=== PATIENT | female | born 1995 | race Caucasian/White ===

== ENCOUNTER 2017-04-21 12:51 | Emergency (ER) | payer SELFPAY ==
[~2017-04-21] VITALS: Ht 160 cm; Wt 75.5 kg
[2017-04-21 12:55] VITALS: Ht 160 cm; Wt 75.5 kg
--- NOTE | 2017-04-21 14:07 | ERD ---
ER Documentation Chief Complaint Date/Time DATE: 04/21/17 TIME: 14:06 Chief Complaint sent by pmd for possible ectopic, LMP 03/10/17 HPI Patient is a 22-year-old female , approximately 5 weeks , who presents to the emergency department for concerns of an ectopic . Patient was referred to the ED by her primary care physician at the [facility]. Per report which she brings in, unable to identify intrauterine gestational sac at this time. Patient denies any fevers, chills, nausea, vomiting, pain, vaginal bleeding, pelvic cramping or loss of consciousness. Patient states her last menstrual period was on 03/10/17. ROS All systems reviewed and are negative except as per history of present illness. Medications Home Meds Active Scripts Cephalexin* (Keflex*) 500 Mg Capsule, 500 MG PO TID for 7 Days, CAP Prov:MICHAEL ESCOBAR PA-C 04/21/17 Allergies Allergies: Coded Allergies: No Known Allergy (Unverified , 04/21/17) PMhx/Soc Medical and Surgical Hx: pt denies Medical Hx, pt denies Surgical Hx Hx Alcohol Use: No Hx Substance Use: No Hx Tobacco Use: No Smoking Status: Never smoker Physical Exam Vitals Vital Signs Date Time Temp Pulse Resp B/P Pulse Ox O2 Delivery O2 Flow Rate FiO2 04/21/17 12:55 98.3 74 18 127/76 100 Physical Exam GENERAL: Well-developed, well-nourished female. Appears in no acute distress. HEAD: Normocephalic, atraumatic. EYES: Pupils are equally reactive bilaterally. EOMs grossly intact. No conjunctival erythema. ENT: Moist mucous membranes. No uvula deviation. No kissing tonsils. NECK: Supple. No meningismus. Normal range of motion of the neck. LUNG: Clear to auscultation bilaterally. No rhonchi, wheezing, rales or coarse breath sounds. HEART: Regular rate and rhythm. No murmurs, rubs or gallops. ABDOMEN: No scars, ecchymosis or rashes noted. Soft, nontender, and nondistended. Positive bowel sounds in all four quadrants. No rebound tenderness , no guarding. (-) McBurney's point tenderness. No CVA tenderness. EXTREMITIES: Equal pulses bilaterally. No peripheral clubbing, cyanosis or edema. No unilateral leg swelling. NEUROLOGIC: Alert and oriented. Moving all four extremities without any difficulty. Normal speech. Steady gait. SKIN: Normal color. Warm and dry. No rashes or lesions. Result Diagram: 04/21/17 1409 Results 24 hrs Laboratory Tests Test 04/21/17 14:09 04/21/17 14:20 White Blood Count 6.510^3/ul Red Blood Count 4.2810^6/ul Hemoglobin 13.5g/dl Hematocrit 39.2% Mean Corpuscular Volume 91.6fl Mean Corpuscular Hemoglobin 31.5pg Mean Corpuscular Hemoglobin Concent 34.4g/dl Red Cell Distribution Width 12.2% Platelet Count 51525^3/UL Mean Platelet Volume 9.7fl Neutrophils % 56.5% Lymphocytes % 35.1% Monocytes % 7.1% Eosinophils % 0.6% Basophils % 0.5% Nucleated Red Blood Cells % 0.0/100WBC Neutrophils # 3.710^3/ul Lymphocytes # 2.310^3/ul Monocytes # 0.510^3/ul Eosinophils # 0.010^3/ul Basophils # 0.010^3/ul Nucleated Red Blood Cells # 0.010^3/ul Beta HCG, Quantitative 125.3mIU/ml Urine Color YELLOW Urine Clarity SLIGHTLY CLOUDY Urine pH 6.0 Urine Specific [place] 1.014 Urine Ketones NEGATIVEmg/dL Urine Nitrite NEGATIVEmg/dL Urine Bilirubin NEGATIVEmg/dL Urine Urobilinogen NEGATIVEmg/dL Urine Leukocyte Esterase 2+Sudeep/ul Urine Microscopic RBC 1/HPF Urine Microscopic WBC 12/HPF Urine Squamous Epithelial Cells FEW/HPF Urine Bacteria FEW/HPF Urine Hemoglobin NEGATIVEmg/dL Urine Glucose NEGATIVEmg/dL Urine Total Protein NEGATIVEmg/dl Current Medications Medications (Trade) Dose Ordered Sig/Molly Route PRN Reason Start Time Stop Time Status Last Admin Dose Admin Acetaminophen (Tylenol Tab) 1,000 mg ONCE STAT PO 04/21/17 15:11 04/21/17 15:12 DC 04/21/17 15:21 Procedures/MDM ED COURSE: The patient was stable throughout ED course. I kept the patient and/or family informed of laboratory and diagnostic imaging results throughout the ED course. DIAGNOSTIC IMAGING: Read by radiologist. Patient: TERESSA ASHTON : 1995 Age: 22 Sex: F MR #: [id number] DOS: 04/21/17 1353 Ordering MD: MICHAEL ESCOBAR PA-C Location: [facility] Room/Bed: PROCEDURE: OBSTETRICAL ULTRASOUND WITH ENDOVAGINAL IMAGES CLINICAL INDICATION: Vaginal Bleed () TECHNIQUE: Multiple sonographic images of the pelvis were obtained utilizing a transabdominal and endovaginal technique. The images were reviewed on a PACS workstation. COMPARISON: None. LMP: 03/10/2017 Gestational age by LMP: 6 weeks, 0 days FINDINGS: The uterus measures 7.6 x 4.5 x 5.4 cm. There is thickening of the endometrium to 8 mm without evidence of an intrauterine . The right ovary measures 2.5 x 1.3 x 1 point a cm. The left ovary measures 3.2 x 1.8 x 2.7 cm. There is normal vascular flow in both ovaries. There is a thick-walled 2 cm lesion with prominent peripheral vascular flow and internal septations in the left ovary which is likely a hemorrhagic/corpus luteal cyst. No significant pelvic free fluid is identified. IMPRESSION: Thickening of the endometrium to 8 mm without evidence of an intrauterine . If there has been a recent documented intrauterine , then findings suggest interval . If there has been no recent documented intrauterine , then findings may be due to an early intrauterine although an ectopic and early demise cannot be excluded in the setting of vaginal bleeding. In such a scenario, short-term follow-up ultrasound and serial Beta HCG measurements are recommended for further evaluation. 2 cm complex cystic lesion in the left ovary is likely a hemorrhagic/corpus luteal cyst. No internal vascular flow is noted to suggest that it is an ectopic . Attention on follow-up is recommended. RPTAT: EE Physician Babar Date Time Electronically viewed and signed by Physician Babar on 04/21/2017 15:35 RA/ CC: MICHAEL ESCOBAR PA-C PROCEDURES: None. MEDICATIONS GIVEN: Tylenol Patient tolerated medication well with no adverse reactions. Patient reported improvement in pain. MEDICAL DECISION MAKING: This is a 22-year-old female who presents to the emergency department for concerns of ectopic . Patient was referred to the ED by her primary care physician at [facility]. Vital signs were reviewed. Patient was afebrile. Patient was hemodynamically stable. Patient's beta-hCG was noted to be 125.3. Patient's Rh was A+. Urinalysis showed 2+ leukocyte esterase, positive WBCs. CBC showed no evidence of systemic infection or severe anemia. Pelvic US showed Thickening of the endometrium to 8 mm without evidence of an intrauterine . If there has been a recent documented intrauterine , then findings suggest interval . If there has been no recent documented intrauterine , then findings may be due to an early intrauterine although an ectopic and early demise cannot be excluded in the setting of vaginal bleeding. In such a scenario, short-term follow-up ultrasound and serial Beta HCG measurements are recommended for further evaluation. 2 cm complex cystic lesion in the left ovary is likely a hemorrhagic/corpus luteal cyst. No internal vascular flow is noted to suggest that it is an ectopic . Attention on follow-up is recommended. Given these findings, the patients presentation is most consistent with new onset and UTI. Unable to rule out ectopic at this time. Patient was advised to return in 2 days for repeat beta-hCG. Low suspicion for ruptured ectopic , molar , subchorionic hematoma, spontaneous , incomplete , complete , missed , placental abruption, placental previa, vasa previa, uterine rupture, anembyronic . PRESCRIPTIONS: Keflex DISCHARGE: At this time, patient is stable for discharge and outpatient management. Patient was given a copy of all blood work and imaging studies obtained today. I had a conversation at length with the patient about the concerns during the 1st trimester of including ectopic . I have instructed the patient to follow-up with her OBGYN in 1-2 days for further monitoring including a repeat b-HCG level. I have instructed the patient to promptly return to the ER at any time for any new or worsening symptoms including increased pain, nausea, vomiting, continued bleeding, weakness, syncope or fever. The patient and/or family expressed understanding of and agreement with this plan. All questions were answered. Home care instructions were provided. Departure Diagnosis: Primary Impression: Pelvic pain affecting Additional Impression: UTI (urinary tract infection) Urinary tract infection type: acute cystitis Hematuria presence: without hematuria Qualified Code: N30.00 - Acute cystitis without hematuria Condition: Stable Patient Instructions: , New Dx Referrals: [facility] REFERRAL LIST Additional Instructions: Call your primary care doctor/OBGYN TOMORROW for an appointment during the next 1-2 days.See the doctor sooner or return here if your condition worsens before your appointment time. Return to the emergency department 2 days for repeat beta-hCG. Unable to rule out ectopic at this time. Return sooner for any new or worsening symptoms including but not limited to severe pain, bleeding, fever, chills, nausea, vomiting or loss of consciousness. MICHAEL ESCOBAR PA-C Apr 21, 2017 14:07
[2017-04-21 14:21] LABS: BASOPHILS % 0.5 % (0.0-2.0); EOSINOPHILS % 0.6 % (0.0-7.0); HEMATOCRIT 39.2 % (37.0-47.0); HEMOGLOBIN 13.5 g/dl (12.0-16.0); LYMPHOCYTES # 2.3 10^3/ul (0.8-2.9); LYMPHOCYTES % 35.1 % (15.0-51.0); MEAN CORPUSCULAR HEMOGLOBIN 31.5 pg (29.0-33.0); MEAN CORPUSCULAR HGB CONC 34.4 g/dl (32.0-37.0); MEAN CORPUSCULAR VOLUME 91.6 fl (82.0-101.0); MEAN PLATELET VOLUME 9.7 fl (7.4-10.4); MONOCYTE # 0.5 10^3/ul (0.3-0.9); MONOCYTES % 7.1 % (0.0-11.0); NEUTROPHIL # 3.7 10^3/ul (1.6-7.5); NEUTROPHILS % 56.5 % (39.0-77.0); PLATELET COUNT 318 10^3/UL (140-415); RED BLOOD COUNT 4.28 10^6/ul (4.20-5.40); RED CELL DISTRIBUTION WIDTH 12.2 % (11.5-14.5); WHITE BLOOD COUNT 6.5 10^3/ul (4.8-10.8)
[2017-04-21 14:52] LABS: ADD UMIC YES; UR ASCORBIC ACID NEGATIVE (NEGATIVE); UR BACTERIA FEW /HPF (NONE SEEN); UR BILIRUBIN (Dip) NEGATIVE (NEGATIVE); UR BLOOD (Dip) NEGATIVE (NEGATIVE); UR CLARITY SLIGHTLY CLOUDY (CLEAR); UR COLOR YELLOW (YELLOW); UR GLUCOSE (Dip) NEGATIVE (NEGATIVE); UR KETONES (Dip) NEGATIVE (NEGATIVE); UR LEUKOCYTE ESTERASE (Dip) 2+ Leu/ul (NEGATIVE); UR NITRITE (Dip) NEGATIVE (NEGATIVE); UR RBC 1 /HPF (0-5); UR SPECIFIC GRAVITY (Dip) 1.014 (1.003-1.030); UR SQUAMOUS EPITHELIAL CELL FEW /HPF (FEW); UR TOTAL PROTEIN (Dip) NEGATIVE (NEGATIVE); UR UROBILINOGEN (Dip) NEGATIVE (NEGATIVE)
[2017-04-21] MEDS ORDERED: ACETAMINOPHEN 500 MG TAB PO STA (15:11)
--- NOTE | 2017-04-21 15:35 | RADRPT ---
PROCEDURE: OBSTETRICAL ULTRASOUND WITH ENDOVAGINAL IMAGES CLINICAL INDICATION: Vaginal Bleed () TECHNIQUE: Multiple sonographic images of the pelvis were obtained utilizing a transabdominal and endovaginal technique. The images were reviewed on a PACS workstation. COMPARISON: None. LMP: 03/10/2017 Gestational age by LMP: 6 weeks, 0 days FINDINGS: The uterus measures 7.6 x 4.5 x 5.4 cm. There is thickening of the endometrium to 8 mm without evidence of an intrauterine . The right ovary measures 2.5 x 1.3 x 1 point a cm. The left ovary measures 3.2 x 1.8 x 2.7 cm. There is normal vascular flow in both ovaries. There is a thick-walled 2 cm lesion with prominent peripheral vascular flow and internal septations in the left ovary which is likely a hemorrhagic/corpus luteal cyst. No significant pelvic free fluid is identified. IMPRESSION: Thickening of the endometrium to 8 mm without evidence of an intrauterine . If there has been a recent documented intrauterine , then findings suggest interval abortio n. If there has been no recent documented intrauterine , then findings may be due to an early intrauterine although an ectopic and early demise cannot be excluded in th e setting of vaginal bleeding. In such a scenario, short-term follow-up ultrasound and serial Beta HCG measurements are recommended for further evaluation. 2 cm complex cystic lesion in the left ovary is likely a hemorrhagic/corpus luteal cyst. No interna l vascular flow is noted to suggest that it is an ectopic . Attention on follow-up is manuel mmended. RPTAT: EE Physician Babar Date Time Electronically viewed and signed by Pedro Luis Max Physician on 04/21/2017 15:35 /
[2017-04-21] MEDS ORDERED: CEPH-443 PO (16:32)
== END 2017-04-21 16:41 | disposition home or self-care (01) ==
LOC: FTE 12:51
DX: O26.891 Other specified pregnancy related conditions, first trimester (principal); R10.2 Pelvic and perineal pain; O23.11 Infections of bladder in pregnancy, first trimester; Z3A.01 Less than 8 weeks gestation of pregnancy
CPT/HCPCS: 36415; 76801; 76817; 81001; 84702; 85025; 86900; 86901

== ENCOUNTER 2017-04-25 13:04 | Emergency (ER) | payer MEDICAID ==
[~2017-04-25] VITALS: Wt 77.0 kg
[~2017-04-25 13:04] MED LIST: CEPH-443 PO
[2017-04-25 13:55] LABS: BASOPHILS % 0.4 % (0.0-2.0); EOSINOPHILS # 0.1 10^3/ul (0.0-0.5); EOSINOPHILS % 0.9 % (0.0-7.0); HEMATOCRIT 41.5 % (37.0-47.0); HEMOGLOBIN 14.3 g/dl (12.0-16.0); LYMPHOCYTES # 2.3 10^3/ul (0.8-2.9); LYMPHOCYTES % 32.6 % (15.0-51.0); MEAN CORPUSCULAR HEMOGLOBIN 32.2 pg (29.0-33.0); MEAN CORPUSCULAR HGB CONC 34.5 g/dl (32.0-37.0); MEAN CORPUSCULAR VOLUME 93.5 fl (82.0-101.0); MEAN PLATELET VOLUME 9.7 fl (7.4-10.4); MONOCYTE # 0.4 10^3/ul (0.3-0.9); MONOCYTES % 5.6 % (0.0-11.0); NEUTROPHIL # 4.2 10^3/ul (1.6-7.5); NEUTROPHILS % 60.4 % (39.0-77.0); PLATELET COUNT 305 10^3/UL (140-415); RED BLOOD COUNT 4.44 10^6/ul (4.20-5.40); RED CELL DISTRIBUTION WIDTH 12.5 % (11.5-14.5)
[2017-04-25] MEDS ORDERED: ACETAMINOPHEN 325 MG TAB PO ONE (14:00)
--- NOTE | 2017-04-25 14:24 | RADRPT ---
PROCEDURE: US Obstetric less than 14 weeks. CLINICAL INDICATION: , vaginal bleeding TECHNIQUE: Transabdominal and transvaginal imaging of the pelvis was performed. Images are review ed on a high-resolution PACS workstation. COMPARISON: 04/21/2017 FINDINGS: No intrauterine gestational sac is identified. The endometrium is not thickened. Bilateral ovaries are unremarkable. No ovarian torsion, adnexal mass or pelvic free fluid is seen. IMPRESSION: 1. No sonographic evidence of intrauterine or ectopic gestation is seen at this time. Continued ul trasound and/or beta HCG follow-up is recommended to definitively exclude occult ectopic gestation. RPTAT: PP .Juan Brown MD, MD Date Time Electronically viewed and signed by .Juan Brown MD, on 04/25/2017 14:24 .R/
[2017-04-25 14:27] LABS: ADD UMIC YES; UR ASCORBIC ACID NEGATIVE (NEGATIVE); UR BILIRUBIN (Dip) NEGATIVE (NEGATIVE); UR BLOOD (Dip) 1+ mg/dL (NEGATIVE); UR CLARITY CLEAR (CLEAR); UR COLOR YELLOW (YELLOW); UR GLUCOSE (Dip) NEGATIVE (NEGATIVE); UR KETONES (Dip) NEGATIVE (NEGATIVE); UR LEUKOCYTE ESTERASE (Dip) NEGATIVE Leu/ul (NEGATIVE); UR NITRITE (Dip) NEGATIVE (NEGATIVE); UR RBC 0 /HPF (0-5); UR SPECIFIC GRAVITY (Dip) 1.013 (1.003-1.030); UR TOTAL PROTEIN (Dip) NEGATIVE (NEGATIVE); UR UROBILINOGEN (Dip) NEGATIVE (NEGATIVE)
[2017-04-25] MEDS ORDERED: ACET500C5 PO (14:43)
--- NOTE | 2017-04-25 17:25 | ERD ---
ER Documentation Chief Complaint Date/Time DATE: 04/25/17 TIME: 17:19 Chief Complaint VAG BLEEDING, PT 5 WEEKS PG HPI 22-year-old female patient with no significant past medical history presents to the ED complaining of vaginal bleeding that started yesterday. States that she has had to change 2 pads per day. Reports that she is a . Reports that her last menses was on March 10, 2017. States that she was having sexual intercourse last night and she started to have vaginal bleeding. Reports that she noticed blood clots. States that she has some slight right pelvic pain. Denies any dysuria, urgency, frequency, abdominal pain, nausea, vomiting, chest pain, shortness of breath. ROS All systems reviewed and are negative except as per history of present illness. Medications Home Meds Active Scripts Acetaminophen* (Tylophen*) 500 Mg Capsule, 1 CAP PO Q6H Y for PAIN AND OR ELEVATED TEMP, #20 CAP Prov:LEONEL ALANIS PA-C 04/25/17 Cephalexin* (Keflex*) 500 Mg Capsule, 500 MG PO TID for 7 Days, CAP Prov:MICHAEL ESCOBAR PA-C 04/21/17 Allergies Allergies: Coded Allergies: No Known Allergy (Unverified , 04/21/17) PMhx/Soc Medical and Surgical Hx: pt denies Medical Hx, pt denies Surgical Hx Hx Alcohol Use: No Hx Substance Use: No Hx Tobacco Use: No Smoking Status: Never smoker Physical Exam Vitals Vital Signs Date Time Temp Pulse Resp B/P Pulse Ox O2 Delivery O2 Flow Rate FiO2 04/25/17 13:07 98.8 90 17 127/72 99 Physical Exam Const: Wmh-mss-gxcpaltol, well-nourished. In no acute distress. Head: Atraumatic, normocephalic Eyes: Normal Conjunctiva without injection. No purulent discharge. ENT: Normal external ear, nose. Moist oropharynx without tonsillar exudates. Non -erythematous pharynx. Uvula midline. No drooling. No trismus. Neck: No cervical midline tenderness. Full range of motion. No meningismus. No cervical lymphadenopathy. No JVD. Resp: Clear to auscultation bilaterally. No wheezing, rhonchi, rales, or crackles. No accessory muscle use. No retractions. Cardio: Regular rate and rhythm. No murmurs, rubs or gallops. Abd: Soft, slight pelvic pain, non distended. Normal bowel sounds. No palpable masses. No rebound tenderness. No guarding. Negative McBurney's point. Negative psoas sign. Negative obturator sign. Skin: No petechiae or rashes Back: No midline tenderness. No CVA tenderness. Ext: No cyanosis, or edema. Neur: Awake and alert. Normal gait. Normal coordination. Psych: Normal Mood and Affect Results 24 hrs Laboratory Tests Test 04/25/17 13:25 04/25/17 14:10 White Blood Count 7.010^3/ul Red Blood Count 4.4410^6/ul Hemoglobin 14.3g/dl Hematocrit 41.5% Mean Corpuscular Volume 93.5fl Mean Corpuscular Hemoglobin 32.2pg Mean Corpuscular Hemoglobin Concent 34.5g/dl Red Cell Distribution Width 12.5% Platelet Count 37910^3/UL Mean Platelet Volume 9.7fl Neutrophils % 60.4% Lymphocytes % 32.6% Monocytes % 5.6% Eosinophils % 0.9% Basophils % 0.4% Nucleated Red Blood Cells % 0.0/100WBC Neutrophils # 4.210^3/ul Lymphocytes # 2.310^3/ul Monocytes # 0.410^3/ul Eosinophils # 0.110^3/ul Basophils # 0.010^3/ul Nucleated Red Blood Cells # 0.010^3/ul Beta HCG, Quantitative 49.5mIU/ml Urine Color YELLOW Urine Clarity CLEAR Urine pH 5.0 Urine Specific [place] 1.013 Urine Ketones NEGATIVEmg/dL Urine Nitrite NEGATIVEmg/dL Urine Bilirubin NEGATIVEmg/dL Urine Urobilinogen NEGATIVEmg/dL Urine Leukocyte Esterase NEGATIVELeu/ul Urine Microscopic RBC 0/HPF Urine Microscopic WBC 3/HPF Urine Hemoglobin 1+mg/dL Urine Glucose NEGATIVEmg/dL Urine Total Protein NEGATIVEmg/dl Current Medications Medications (Trade) Dose Ordered Sig/Molly Route PRN Reason Start Time Stop Time Status Last Admin Dose Admin Acetaminophen (Tylenol Tab) 650 mg ONCE ONCE PO 04/25/17 14:00 04/25/17 14:01 DC 04/25/17 14:13 Procedures/MDM 22-year-old female who is a presents the ED complaining of vaginal bleeding that started 2 days ago. Patient is afebrile and nontoxic-appearing. Patient has normal vital signs. An ultrasound, beta-hCG, CBC, type and RH, UA was ordered to evaluate patient. CBC: No evidence of severe infection or anemia Urine: No elevation in nitrites, leukocyte esterase. 1+ hematuria. No evidence of UTI Rh: A positive. No indication for Rhogam at this time. beta Hc.3 decreased to 49.5 PROCEDURE: US Obstetric less than 14 weeks. CLINICAL INDICATION: , vaginal bleeding TECHNIQUE: Transabdominal and transvaginal imaging of the pelvis was performed. Images are reviewed on a high-resolution PACS workstation. COMPARISON: 04/21/2017 FINDINGS: No intrauterine gestational sac is identified. The endometrium is not thickened. Bilateral ovaries are unremarkable. No ovarian torsion, adnexal mass or pelvic free fluid is seen. IMPRESSION: 1. No sonographic evidence of intrauterine or ectopic gestation is seen at this time. Continued ultrasound and/or beta HCG follow-up is recommended to definitively exclude occult ectopic gestation. Patient likely has a miscarriage since patient's beta hCG is decreasing and is now 49.5. Patient's bleeding symptoms have stabilized while in the department. Low suspicion for symptomatic anemia, ectopic , sepsis, PID, appendicitis, ovarian torsion, tubo-ovarian abscess, surgical abdomen, or other emergent conditions. Discharge medications: Tylenol Patient to follow up with [facility] CL[facility]ICIAN in 2 days for further evaluation and treatment. Patient is to return sooner to the ED for any worsening symptoms. Patient's questions were answered. Patient understood and agreed with discharge plan. Departure Diagnosis: Primary Impression: Vaginal bleeding in patient at less than 20 weeks ges... Condition: Stable Patient Instructions: Miscarriage, Bleeding During Early Referrals: ON LICENSE OF [facility] YOU HAVE RECEIVED A MEDICAL SCREENING EXAM AND THE RESULTS INDICATE THAT YOU DO NOT HAVE A CONDITION THAT REQUIRES URGENT TREATMENT IN THE EMERGENCY DEPARTMENT. FURTHER EVALUATION AND TREATMENT OF YOUR CONDITION CAN WAIT UNTIL YOU ARE SEEN IN YOUR DOCTORS OFFICE WITHIN THE NEXT 1-2 DAYS. IT IS YOUR RESPONSIBILITY TO MAKE AN APPOINTMENT FOR FOLOW-UP CARE. IF YOU HAVE A PRIMARY DOCTOR --you should call your primary doctor and schedule an appointment IF YOU DO NOT HAVE A PRIMARY DOCTOR YOU CAN CALL OUR PHYSICIAN REFERRAL HOTLINE AT IF YOU CAN NOT AFFORD TO SEE A PHYSICIAN YOU CAN CHOSE FROM THE FOLLOWING [facility] [address] [facility] [address] [facility] [address] [facility] [address] [facility] [address] [facility]. [facility]. [address] [facility]. [facility] YOU HAVE RECEIVED A MEDICAL SCREENING EXAM AND THE RESULTS INDICATE THAT YOU DO NOT HAVE A CONDITION THAT REQUIRES URGENT TREATMENT IN THE EMERGENCY DEPARTMENT. FURTHER EVALUATION AND TREATMENT OF YOUR CONDITION CAN WAIT UNTIL YOU ARE SEEN IN YOUR DOCTORS OFFICE WITHIN THE NEXT 1-2 DAYS. IT IS YOUR RESPONSIBILITY TO MAKE AN APPOINTMENT FOR FOLOW-UP CARE. IF YOU HAVE A PRIMARY DOCTOR --you should call your primary doctor and schedule and appointment IF YOU DO NOT HAVE A PRIMARY DOCTOR YOU CAN CALL OUR PHYSICIAN REFERRAL HOTLINE AT . IF YOU CAN NOT AFFORD TO SEE A PHYSICIAN YOU CAN CHOSE FROM THE FOLLOWING [facility]: [facility] [address] [place] [address] [facility] [address] [place] [address] [facility] [address] [place] [address] [facility] [address] [facility] [address] [place], [place] [phone] OFFICE FAX KELLY CARR [address] [place], [place] [id number]. DYE F[address]ONG [address] [place], [place] [phone] LILLIAN MORENO [address] [facility], [address] [address] [address] [address] [place] [phone] [facility] [address] [place], [place] [id number] [address] [facility] [id number] - [address] TIM, [place] [address], [facility] [address] [address] DUNBAR, JAHAIRA [address] [facility]. [address], [facility] [address] [address] TRUJILLO, [place] [address] [place] [address] [facility] Hours: 8:00 am - 5:00 pm Additional Instructions: Visite a soto mdedward raygoza para un EXAMEN para un referido valente a un obstetra/ Gineclogo para evaluacin adicional y tratamiento.Regrese a estas instalaciones si no se mejora mariya esperbamos o mariya le dijimos. LEONEL ALANIS PA-C Apr 25, 2017 17:25 LEONEL ALANIS PA-C Apr 25, 2017 17:25
== END 2017-04-25 15:13 | disposition home or self-care (01) ==
LOC: FTE 13:04
DX: O20.9 Hemorrhage in early pregnancy, unspecified (principal); Z3A.01 Less than 8 weeks gestation of pregnancy
CPT/HCPCS: 36415; 76801; 76817; 81001; 84702; 85025; 86900; 86901; Z7502; Z7610